=== PATIENT | female | born 1970 | race Caucasian/White ===

== ENCOUNTER 2018-09-04 11:28 | Emergency (ER) | payer MEDICAID, OTHER ==
[~2018-09-04] VITALS: Wt 68.0 kg
[2018-09-04] MEDS ORDERED: ACETAMINOPHEN 500 MG TAB PO STA (12:34)
[2018-09-04] MEDS ORDERED: morphine 4 MG/ML VIAL IV STA (12:34)
[2018-09-04] MEDS ORDERED: ONDANSETRON 4 MG INJ IV STA (12:34)
[2018-09-04] MEDS ORDERED: SODIUM CHLORIDE 0.9% 1L BAG IV* STA (12:34)
[2018-09-04] MEDS ORDERED: IBUPROFEN 800 MG TAB PO ONE (13:00)
[2018-09-04] MEDS ORDERED: HYDR25TA6 PO (13:12)
[2018-09-04] MEDS ORDERED: DOCU-159 PO (13:12)
[2018-09-04] MEDS ORDERED: BENA40TA56 PO (13:12)
[2018-09-04] MEDS ORDERED: GEMF600T PO (13:12)
[2018-09-04] MEDS ORDERED: LEVO100T82 PO (13:12)
--- NOTE | 2018-09-04 13:54 | ERD ---
ER Documentation Chief Complaint Chief Complaint dysuria x 5 days, body aches HPI This is a 47-year-old female with a past medical history of hypertension hypothyroidism who presents to the emergency department complaining of frequency urgency and dysuria for the past 5 days. She had generalized myalgias. She said no diarrhea. She is had multiple episodes of nonbloody nonbilious emesis. She states she had a bandlike headache. She also indicates that she has had a tactile fever with shaking and chills. Her last dose of antipyretics was Tylenol at 7 AM, roughly 7 hours prior to arrival. She denies any neck pain. The patient denies any gross hematuria. She denies any chest pain or pressure. She denies any abdominal pain. She has no back pain. ROS All systems reviewed and are negative except as per history of present illness. Medications Home Meds Reported Medications Benazepril Hcl* (Benazepril Hcl*) 40 Mg Tablet, 40 MG PO DAILY, #30 TAB 09/04/18 Gemfibrozil* (Lopid*) 600 Mg Tablet, 600 MG PO BID, TAB 09/04/18 Levothyroxine Sodium* (Levoxyl*) 100 Mcg Tablet, 100 MCG PO BEFORE BREAKFAST, #30 TAB 09/04/18 Hydrochlorothiazide* (Hydrochlorothiazide*) 25 Mg Tab, 25 MG PO DAILY, #30 TAB 09/04/18 Docusate Sodium* (Docusate Sodium*) 100 Mg Capsule, 100 MG PO BID, #60 CAP 09/04/18 Allergies Allergies: Coded Allergies: No Known Allergy (Unverified , 09/04/18) PMhx/Soc Medical and Surgical Hx: pt denies Medical Hx, pt denies Surgical Hx History of Surgery: No Anesthesia Reaction: No Hx Neurological Disorder: No Hx Respiratory Disorders: No Hx Cardiac Disorders: No Hx Psychiatric Problems: No Hx Miscellaneous Medical Probl: No Hx Alcohol Use: No Hx Substance Use: No Hx Tobacco Use: No Smoking Status: Never smoker Physical Exam Vitals Vital Signs Date Temp Pulse Resp B/P (MAP) Pulse Ox O2 O2 Flow FiO2 Time Delivery Rate 09/04/18 103.1 96 18 160/94 99 11:37 (116) Physical Exam Constitutional:Well-developed. Well-nourished. HEENT:Normocephalic. Atraumatic.Pupils were equal round reactive to light. Dry mucous membranes.No tonsillar exudates. Neck: No nuchal rigidity. No lymphadenopathy. No posterior cervical spine tenderness or step-offs. Respiratory: Not using accessory muscles of respiration.Lungs were clear to auscultation bilaterally. No rhonchi. No rales. No wheezing. Cardiovascular: Regular rate regular rhythm.No murmurs. No rubs were appreciated.S1, S2 normal. Distal pulses are palpable 2+ bilaterally. GI: Abdomen was soft. Nontender. Non Distended. No pulsatile abdominal masses or bruits. No rebound. No guarding. Bowel sounds were present and normal. Muscle skeletal: Full range of motion of both the upper and lower extremities bilaterally.Normal muscle tone.No assymetrical calf tenderness or swelling. Skin: Skin warm to the touch. No petechia, no purpura. No lesions on the palms or the soles of the feet. No maculopapular rash. NEURO: Patient was alert, awake, orientated x3.No facial droop. Gait observed and normal with no ataxia.Speech had regular rate and rhythm. No focal neurological deficits. Result Diagram: 09/04/18 1259 09/04/18 1259 Results 24 hrs Laboratory Tests Test 09/04/18 12:59 White Blood Count 11.6 10^3/ul Red Blood Count 4.01 10^6/ul Hemoglobin 12.1 g/dl Hematocrit 36.1 % Mean Corpuscular Volume 90.0 fl Mean Corpuscular Hemoglobin 30.2 pg Mean Corpuscular Hemoglobin Concent 33.5 g/dl Red Cell Distribution Width 12.0 % Platelet Count 284 10^3/UL Mean Platelet Volume 10.0 fl Immature Granulocytes % 0.300 % Neutrophils % 86.1 % Lymphocytes % 7.2 % Monocytes % 6.2 % Eosinophils % 0.0 % Basophils % 0.2 % Nucleated Red Blood Cells % 0.0 /100WBC Immature Granulocytes # 0.040 10^3/ul Neutrophils # 10.0 10^3/ul Lymphocytes # 0.8 10^3/ul Monocytes # 0.7 10^3/ul Eosinophils # 0.0 10^3/ul Basophils # 0.0 10^3/ul Nucleated Red Blood Cells # 0.0 10^3/ul Prothrombin Time 13.5 Sec Prothrombin Time Ratio 1.1 INR International Normalized Ratio 1.02 Activated Partial Thromboplast Time 28.9 Sec Urine Color YELLOW Urine Clarity SLIGHTLY CLOUDY Urine pH 5.0 Urine Specific Standard 1.010 Urine Ketones NEGATIVE mg/dL Urine Nitrite NEGATIVE mg/dL Urine Bilirubin NEGATIVE mg/dL Urine Urobilinogen NEGATIVE mg/dL Urine Leukocyte Esterase 3+ Julio Cesar/ul Urine Microscopic RBC 10 /HPF Urine Microscopic WBC 77 /HPF Urine Bacteria FEW /HPF Urine Hemoglobin 3+ mg/dL Urine Glucose NEGATIVE mg/dL Urine Total Protein NEGATIVE mg/dl Sodium Level 142 mmol/L Potassium Level 3.4 mmol/L Chloride Level 100 mmol/L Carbon Dioxide Level 29 mmol/L Anion Gap 13 Blood Urea Nitrogen 16 mg/dl Creatinine 0.86 mg/dl Est Glomerular Filtrat Rate mL/min > 60 mL/min Glucose Level 118 mg/dl Calcium Level 9.3 mg/dl Total Bilirubin 0.5 mg/dl Direct Bilirubin 0.00 mg/dl Indirect Bilirubin 0.5 mg/dl Aspartate Amino Transf (AST/SGOT) 21 IU/L Alanine Aminotransferase (ALT/SGPT) 24 IU/L Alkaline Phosphatase 102 IU/L Troponin I < 0.012 ng/ml Total Protein 8.5 g/dl Albumin 4.6 g/dl Globulin 3.90 g/dl Albumin/Globulin Ratio 1.17 Amylase Level 63 U/L Lipase 50 U/L Current Medications Medications Dose Sig/Shannan Start Time Status Last (Trade) Ordered Route PRN Stop Time Admin Dose Reason Admin Sodium 2,040 ml BOLUS OVER 2 09/04/18 DC 09/04/18 Chloride HOURS STAT 12:34 09/04/18 13:21 (NS) IV* 12:38 Morphine 2 mg ONCE STAT 09/04/18 DC 09/04/18 Sulfate IV 12:34 09/04/18 13:21 (morphine) 12:38 Ondansetron 4 mg ONCE STAT 09/04/18 DC 09/04/18 HCl (Zofran IV 12:34 09/04/18 13:21 Inj) 12:38 Ibuprofen 800 mg ONCE ONCE 09/04/18 DC 09/04/18 (Motrin) PO 13:00 09/04/18 13:21 13:01 1,000 mg ONCE STAT 09/04/18 DC 09/04/18 Acetaminophen PO 12:34 09/04/18 13:21 (Tylenol 12:38 Tab) Procedures/MDM This is a 47-year-old female that presented to the emergency department febrile with frequency urgency and dysuria. I did feel the patient's symptoms are likely result of pyelonephritis. The patient had pyuria on her urinalysis. The patient had no severe left leg abnormalities. Her fever was 103 when she arrived into the emergency department was given antipyretics which included Motrin and Tylenol. She was also given IV fluids for her clinical dehydration. She was given intravenous morphine and Zofran for her cephalgia which I felt was secondary to the fever. She no physical exam findings to suggest meningitis. I obtained a 12-lead EKG tracing to rule for atypical myocardial infarction. 12 Lead EKG tracing ordered and reviewed by myself showed: Normal sinus rhythm of 90 bpm and no arrhythmia. NM interval normal. QRS duration normal. No ST segment elevation No ST segment depression. No changes consistent with acute ischemia. The patient had a urine culture obtained and was given IV ceftriaxone. The patient states she felt comfortable being discharged home and will be discharged home with Keflex Motrin and Tylenol. The patient was discharged home in fair condition. They were instructed to return to the emergency department at any time if there was any worsening of their condition. The patient stated they would follow up with their PCP in the next 24-48 hours to initiate a suitable medication regimen under the care of their PCP as well as to allow their PCP to monitor any drug reactions. The patient was discharged home with prescriptions after they gave informed consent to the new medication. They were also fully informed by myself on the adverse effects and adverse drug interactions in order to provide adequate safeguards to prevent possible adverse reactions to medications. Departure Diagnosis: Primary Impression: Pyelonephritis Condition: KEVEN Sánchez MD Sep 04, 2018 13:54
[2018-09-04] MEDS ORDERED: IBUP800T48 PO (13:55)
[2018-09-04] MEDS ORDERED: CEPH-443 PO (13:55)
[2018-09-04] MEDS ORDERED: ACET500C5 PO (13:55)
[2018-09-04] MEDS ORDERED: CEFTRIAXONE 1 GM/50 ML (PMX) 50 ML IVPB ONE (14:00)
[2018-09-04 14:54] VITALS: BP 98/51; PULSE 71; RESP 16
== END 2018-09-04 16:10 | disposition home or self-care (01) ==
LOC: E/R 11:28
DX: N12 Tubulo-interstitial nephritis, not specified as acute or chronic (principal); I10 Essential (primary) hypertension; E03.9 Hypothyroidism, unspecified; R40.2142 Coma scale, eyes open, spontaneous, at arrival to emergency department; R40.2362 Coma scale, best motor response, obeys commands, at arrival to emergency department; R40.2252 Coma scale, best verbal response, oriented, at arrival to emergency department
CPT/HCPCS: 71045; 80053; 81001; 82150; 83690; 84484; 85025; 85610; 85730; 87086; 87400; 93005; 96374; 96375; J0696; J2270; J2405; J7030; Z7502; Z7610